=== PATIENT | male | born 1970 | race Caucasian/White ===

== ENCOUNTER 2018-02-20 13:44 | Inpatient (IN) ==
[~2018-02-20 13:44] MED LIST: ATROPINE 1 MG/10 ML SYRINGE ONE; EPINEPHrine 1 MG/ML VIAL ONE; SODIUM BICARBONATE 50 MEQ/50 ML SYRINGE IV ONE
[2018-02-20] MEDS ORDERED: NALOXONE 0.4 MG/ML VIAL ONE (13:47)
[2018-02-20] MEDS ORDERED: NALOXONE 0.4 MG/ML VIAL IV STA (13:47)
[2018-02-20] MEDS ORDERED: FLUMAZENIL 0.5 MG/5 ML VIAL IV ONE (13:47)
[2018-02-20] MEDS ORDERED: NALOXONE 0.4 MG/ML VIAL IV ONE (13:53)
[2018-02-20] MEDS ORDERED: SODIUM CHLORIDE 0.9% 1,000 ML IV STA (13:53)
[2018-02-20] MEDS ORDERED: FLUMAZENIL 1 MG/10 ML VIAL IV ONE (13:54)
[2018-02-20] MEDS ORDERED: NOREPINEPHRINE 4 MG/4 ML VIAL IV ONE (14:31)
[2018-02-20] MEDS ORDERED: NOREPINEPHRINE 8 MG in SODIUM CHLORIDE 0.9% 242 ML IV PRN (14:32)
[2018-02-20 14:36] LABS: ABG HCO3 11.8 MMOL/L (20-26); ABG Oxygen Saturation 96.8 % (95-100); ABG PO2 164.5 MM HG (80-95); ABG TCO2 16.1 MMOL/L (23-27); Allen Test Positive; Pt O2 Delivery Device Ventilator
[2018-02-20 14:39] LABS: ABG Base Excess -30.6 MMOL/L (-2.5-2.5)
[2018-02-20 14:40] LABS: Alanine Aminotransferase 2020 U/L (16-61); Albumin 2.8 G/DL (3.4-5.0); Alkaline Phosphatase 105 U/L (45-117); Aspartate Amino Transferase 1598 U/L (0-37); Blood Urea Nitrogen 23 MG/DL (7-18); Calcium 8.8 MG/DL (8.5-10.1); Glucose 57 MG/DL (74-106); Osmolality,Calculated 280.4 MOS/KG (273-304); Sodium 140 MMOL/L (136-145); Total Protein 6.2 G/DL (6.4-8.3)
[2018-02-20 14:42] LABS: Potassium > 8.0 MMOL/L (3.5-5.1)
[2018-02-20] MEDS ORDERED: DEXTROSE 50% 25 GM/50 ML VIAL IV STA (14:43)
[2018-02-20] MEDS ORDERED: INSULIN REGULAR 100 UNIT/ML IV STA (14:43)
[2018-02-20] MEDS ORDERED: SODIUM BICARBONATE 50 MEQ/50 ML VIAL IV STA (14:43)
[2018-02-20 14:44] LABS: ABG PH 6.548 (7.35-7.45)
[2018-02-20] MEDS ORDERED: DEXTROSE 50% 25 GM/50 ML SYRINGE IV ONE ×2 (14:45→18:14)
[2018-02-20] MEDS ORDERED: SODIUM BICARBONATE 50 MEQ/50 ML SYRINGE IV ONE ×7 (14:46→20:25)
[2018-02-20] MEDS ORDERED: INSULIN REGULAR 100 UNIT/ML ONE (14:47)
[2018-02-20] MEDS ORDERED: ACETAMINOPHEN 325 MG TABLET PO PRN (14:58)
[2018-02-20] MEDS ORDERED: MORPHINE 4 MG/1 ML VIAL IV PRN (14:58)
[2018-02-20] MEDS ORDERED: ONDANSETRON 4 MG/2 ML VIAL IV PRN (14:58)
[2018-02-20] MEDS ORDERED: ALBUTEROL 2.5 MG/3 ML NEB RESP TX PRN (14:58)
[2018-02-20] MEDS ORDERED: ENOXAPARIN 40 MG/0.4 ML SYRINGE SUBCUT SCH (15:00)
[2018-02-20] MEDS ORDERED: PROPOFOL 1,000 MG/100 ML BOTTLE IV SCH (15:00)
[2018-02-20] MEDS ORDERED: SODIUM CHLORIDE 0.9% 1,000 ML IV SCH (15:00)
[2018-02-20 15:12] LABS: Barbiturates Screen,Urine Negative (Negative); Benzodiazepines Screen,Urine Positive (Negative); Cannabinoid Screen,Urine Negative (Negative); Opiate Screen,Urine Negative (Negative); Phencyclidine Screen,Urine Negative (Negative)
[2018-02-20 15:14] LABS: Basophils # 0.3 10*3/uL (0.0-0.2); Basophils % 1.2 % (0.0-0.8); Eosinophils # 0.2 10*3/uL (0.0-0.87); Eosinophils % 0.7 % (0.00-10.9); Immature Granulocytes Absolute 1.77 #; Lymphocytes # 5.6 10*3/uL (1.4-4.0); Lymphocytes % 25.4 % (21.2-54.2); Mean Corpuscular HGB Conc 28.6 GM/DL (32-36); Mean Corpuscular Hemoglobin 31 PG (27-34); Mean Corpuscular Volume 108.6 FL (87-102); Mean Platelet Volume 9.6 FL (9.6-12.0); Monocytes # 1.6 10*3/uL (0.11-0.8); Monocytes % 7.2 % (1.7-12.7); NRBC # 0.12 10*3/uL; Neutrophils # 12.7 10*3/uL (1.4-7.4); Neutrophils % 57.5 % (38.7-73.9); Platelet Count 199 T/CUMM (130-400); Red Blood Count 4.51 MC/CUMM (3.8-5.5); Red Cell Distribution Width 12.1 % (9.3-17.3); White Blood Count 22.2 T/CUMM (4-12)
[2018-02-20 15:56] LABS: Lactic Acid 18.9 MMOL/L (0.4-2.0)
[2018-02-20] MEDS ORDERED: MIDAZOLAM 100 MG in SODIUM CHLORIDE 0.9% 80 ML IV PRN (16:01)
[2018-02-20] MEDS ORDERED: PHENYLEPHRINE DRIP 40 MG/250 ML PREMIX IV PRN (16:03)
[2018-02-20] MEDS ORDERED: POTASSIUM CHLORIDE RIDER 10 MEQ in PREMIX 1 EACH IV PRN (16:04)
[2018-02-20] MEDS ORDERED: POTASSIUM CHLORIDE RIDER 20 MEQ in PREMIX 1 EACH IV PRN (16:04)
[2018-02-20] MEDS ORDERED: MAGNESIUM SULF RIDER 2 GM in PREMIX 1 EACH IV PRN (16:05)
[2018-02-20] MEDS ORDERED: MAGNESIUM SULF RIDER 4 GM in PREMIX 1 EACH IV PRN (16:05)
[2018-02-20] MEDS ORDERED: GLUCAGON 1 MG VIAL IM PRN (16:08)
[2018-02-20] MEDS ORDERED: DEXTROSE 50% 25 GM/50 ML VIAL IV PRN (16:08)
[2018-02-20 16:10] LABS: Calcium 7.9 MG/DL (8.5-10.1); Osmolality,Calculated 286.1 MOS/KG (273-304); Potassium 5.2 MMOL/L (3.5-5.1)
[2018-02-20] MEDS ORDERED: MIDAZOLAM 2 MG/2 ML VIAL IV PRN (16:11)
[2018-02-20] MEDS ORDERED: fentaNYL 100 MCG/2 ML VIAL IV PRN (16:12)
[2018-02-20 16:20] LABS: ABG Base Excess -29.4 MMOL/L (-2.5-2.5); ABG HCO3 6.2 MMOL/L (20-26); ABG Oxygen Saturation 97.6 % (95-100); ABG TCO2 11.2 MMOL/L (23-27); Allen Test Positive; Pt O2 Delivery Device Ventilator
[2018-02-20 16:22] LABS: Band Neutrophils 2 % (0-10); Eosinophils 1 % (0-10); Lymphocytes 28 % (20-55); Nucleated Red Blood Cells 2 (0-5); Segmented Neutrophils 60 % (50-85); Total Cells Counted 100
[2018-02-20 16:23] LABS: Atypical Lymphocytes Few; Platelet Estimate Normal
[2018-02-20 16:23] LABS: ABG PCO2 77.3 MM HG (35-48); ABG PH 6.745 (7.35-7.45)
[2018-02-20] MEDS ORDERED: fentaNYL 100 MCG/2 ML VIAL IV ONE (16:30)
[2018-02-20 16:36] LABS: Hepatitis A Ab IgM Quant 0.14 Index; Hepatitis A Ab IgM Result Negative (Negative); Hepatitis B Core IgM Quant < 0.05 Index; Hepatitis B Core IgM Result Negative (Negative); Hepatitis B Surface Ag Quant < 0.10 Index; Hepatitis B Surface Ag Result Negative (Negative); Hepatitis C Virus Ab Quant < 0.02 Index; Hepatitis C Virus Ab Result Negative (Negative)
[2018-02-20 16:46] LABS: INR 1.6; PT Patient Result 17.3 SECS
[2018-02-20 16:51] LABS: Partial Thromboplastin Time 65.6 SECS (0-40)
[2018-02-20 16:57] LABS: Troponin I 0.661 NG/ML (0.00-0.045)
[2018-02-20] MEDS: CISATRACURIUM 200 MG in SODIUM CHLORIDE 0.9% 180 ML IV SCH (17:21)
[2018-02-20] MEDS: SODIUM BICARB INJ 100 MEQ in DEXTROSE 5% 1,000 ML IV SCH ×2 (17:22→23:14)
[2018-02-20] MEDS: fentaNYL INJ 1,250 MCG in SODIUM CHLORIDE 0.9% 225 ML IV PRN (17:24)
[2018-02-20] MEDS: PANTOPRAZOLE 40 MG VIAL IV SCH (18:06)
[2018-02-20 18:10] LABS: ABG Base Excess -22.5 MMOL/L (-2.5-2.5); ABG HCO3 9.3 MMOL/L (20-26); ABG Oxygen Saturation 98.2 % (95-100); ABG PCO2 59.5 MM HG (35-48); ABG TCO2 12.1 MMOL/L (23-27)
[2018-02-20 18:11] LABS: ABG PH 6.932 (7.35-7.45)
[2018-02-20] MEDS: DOPamine 800 MG/250 ML PREMIX IV PRN ×2 (18:18→21:53)
[2018-02-20] MEDS: NOREPINEPHRINE 16 MG in SODIUM CHLORIDE 0.9% 234 ML IV PRN (18:42)
[2018-02-20] MEDS: PHENYLEPHRINE INJ 160 MG in SODIUM CHLORIDE 0.9% 234 ML IV PRN (18:43)
[2018-02-20 19:21] VITALS: BP 90/32
[2018-02-20] MEDS: ALBUTEROL/IPRATROPIUM 3 ML NEB RESP TX SCH (19:36)
[2018-02-20 20:04] LABS: ABG Base Excess -17.2 MMOL/L (-2.5-2.5); ABG HCO3 12.2 MMOL/L (20-26); ABG Oxygen Saturation 96.8 % (95-100); ABG PCO2 47.8 MM HG (35-48); ABG TCO2 12.7 MMOL/L (23-27)
[2018-02-20 20:06] LABS: ABG PH 7.076 (7.35-7.45)
[2018-02-20] MEDS: INSULIN REGULAR 100 UNIT/ML IV SCH (20:10)
[2018-02-20] MEDS: PIPERACILLIN/TAZOBACTAM 3,375 MG in SODIUM CHLORIDE 0.9% 100 ML IV SCH (20:10)
[2018-02-20] MEDS ORDERED: SODIUM CHLORIDE 0.9% 1,000 ML IV ONE (20:25)
[2018-02-20] MEDS: VASOPRESSIN 100 UNITS in SODIUM CHLORIDE 0.9% 95 ML IV SCH (21:45)
[2018-02-20] MEDS: MINERAL OIL/PETROLATUM OPH OINT 3.5 GM TUBE BOTH EYES SCH (21:53)
[2018-02-20 22:45] LABS: Basophils # 0.2 10*3/uL (0.0-0.2); Basophils % 1.5 % (0.0-0.8); Eosinophils % 0.2 % (0.00-10.9); Hematocrit 43.9 VOL% (42.0-52.0); Hemoglobin 13.9 GM/DL (14.0-18.0); Immature Granulocytes % 6.6 %; Immature Granulocytes Absolute 0.67 #; Lymphocytes # 1.3 10*3/uL (1.4-4.0); Lymphocytes % 12.6 % (21.2-54.2); Mean Corpuscular HGB Conc 31.7 GM/DL (32-36); Mean Corpuscular Hemoglobin 31 PG (27-34); Mean Corpuscular Volume 97.8 FL (87-102); Mean Platelet Volume 9.3 FL (9.6-12.0); Monocytes # 0.2 10*3/uL (0.11-0.8); Monocytes % 2.1 % (1.7-12.7); Neutrophils # 7.8 10*3/uL (1.4-7.4); Platelet Count 141 T/CUMM (130-400); Red Blood Count 4.49 MC/CUMM (3.8-5.5); Red Cell Distribution Width 12.4 % (9.3-17.3)
[2018-02-20 22:47] LABS: INR 3.5
[2018-02-20 22:48] LABS: White Blood Count 10.2 T/CUMM (4-12)
[2018-02-20 22:52] LABS: Eosinophils 1 % (0-10); Lactic Acid 14.7 MMOL/L (0.4-2.0); Lymphocytes 22 % (20-55); Nucleated Red Blood Cells 1 (0-5); Reactive Lymphocytes 1+; Segmented Neutrophils 68 % (50-85); Total Cells Counted 100
[2018-02-20 22:53] LABS: Hypochromasia Slight; Macrocytosis 1+; Platelet Estimate Adequate
[2018-02-20 23:00] LABS: PT Patient Result 38.1 SECS; Partial Thromboplastin Time 57.2 SECS (0-40)
[2018-02-21 00:04] LABS: Blood Urea Nitrogen 27 MG/DL (7-18); CKMB % 4.1 %; Glucose 147 MG/DL (74-106); Potassium 3.9 MMOL/L (3.5-5.1); Sodium 143 MMOL/L (136-145)
[2018-02-21 00:06] LABS: Calcium < 5.0 MG/DL (8.5-10.1)
[2018-02-21] MEDS: DOPamine 800 MG/250 ML PREMIX IV PRN ×8 (00:15→21:15)
[2018-02-21] MEDS ORDERED: CALCIUM GLUCONATE 2,000 MG in SODIUM CHLORIDE 0.9% 100 ML IV ONE ×2 (00:45→11:04)
[2018-02-21] MEDS ORDERED: SODIUM CHLORIDE 0.9% 1,000 ML IV ONE ×2 (00:45→00:48)
[2018-02-21] MEDS ORDERED: DOBUTamine 500 MG/250 ML PREMIX IV PRN (00:46)
[2018-02-21] MEDS: ALBUTEROL/IPRATROPIUM 3 ML NEB RESP TX SCH ×4 (00:50→19:41)
[2018-02-21] MEDS ORDERED: CALCIUM GLUCONATE 1,000 MG/10 ML VIAL IV ONE (00:55)
[2018-02-21] MEDS: NOREPINEPHRINE 16 MG in SODIUM CHLORIDE 0.9% 234 ML IV PRN ×4 (00:57→22:05)
[2018-02-21 01:02] LABS: ABG Base Excess -16.5 MMOL/L (-2.5-2.5); ABG HCO3 12.3 MMOL/L (20-26); ABG Oxygen Saturation 94.3 % (95-100); ABG PCO2 55.9 MM HG (35-48); ABG PO2 90.9 MM HG (80-95); ABG TCO2 14.3 MMOL/L (23-27)
[2018-02-21] MEDS ORDERED: SODIUM BICARBONATE 50 MEQ/50 ML SYRINGE IV ONE ×2 (01:03→01:05)
[2018-02-21 01:05] LABS: ABG PH 7.047 (7.35-7.45)
[2018-02-21] MEDS: INSULIN REGULAR 100 UNIT/ML IV SCH ×6 (01:16→19:58)
[2018-02-21] MEDS: PHENYLEPHRINE INJ 160 MG in SODIUM CHLORIDE 0.9% 234 ML IV PRN ×3 (01:42→15:31)
[2018-02-21] MEDS: SODIUM BICARB INJ 100 MEQ in DEXTROSE 5% 1,000 ML IV SCH ×4 (02:32→11:08)
[2018-02-21 04:27] LABS: ABG Base Excess -13.9 MMOL/L (-2.5-2.5); ABG HCO3 16.5 MMOL/L (20-26); ABG Oxygen Saturation 96.6 % (95-100); ABG PCO2 58.1 MM HG (35-48); ABG PO2 106.8 MM HG (80-95); ABG TCO2 18.3 MMOL/L (23-27)
[2018-02-21 04:30] LABS: Basophils % 1.1 % (0.0-0.8); Eosinophils % 0.3 % (0.00-10.9); Hematocrit 40.7 VOL% (42.0-52.0); Hemoglobin 12.8 GM/DL (14.0-18.0); Immature Granulocytes % 5.6 %; Lymphocytes # 1.1 10*3/uL (1.4-4.0); Lymphocytes % 29.8 % (21.2-54.2); Mean Corpuscular HGB Conc 31.4 GM/DL (32-36); Mean Corpuscular Hemoglobin 31 PG (27-34); Mean Corpuscular Volume 97.1 FL (87-102); Mean Platelet Volume 9.8 FL (9.6-12.0); Monocytes # 0.1 10*3/uL (0.11-0.8); Monocytes % 1.7 % (1.7-12.7); NRBC # 0.15 10*3/uL; Neutrophils # 2.2 10*3/uL (1.4-7.4); Neutrophils % 61.5 % (38.7-73.9); Platelet Count 148 T/CUMM (130-400); Red Blood Count 4.19 MC/CUMM (3.8-5.5); Red Cell Distribution Width 12.7 % (9.3-17.3); White Blood Count 3.6 T/CUMM (4-12)
[2018-02-21 04:30] LABS: ABG PH 7.072 (7.35-7.45)
[2018-02-21 04:47] LABS: INR 4.5
[2018-02-21 04:48] LABS: PT Patient Result 48.2 SECS; Partial Thromboplastin Time 54.6 SECS (0-40)
[2018-02-21 05:11] LABS: Albumin 1.9 G/DL (3.4-5.0); Potassium 3.6 MMOL/L (3.5-5.1); Total Protein 3.9 G/DL (6.4-8.3)
[2018-02-21 05:19] LABS: Lactic Acid 14.6 MMOL/L (0.4-2.0)
[2018-02-21] MEDS: PIPERACILLIN/TAZOBACTAM 3,375 MG in SODIUM CHLORIDE 0.9% 100 ML IV SCH ×3 (05:20→19:57)
[2018-02-21 05:22] LABS: Calcium 5.3 MG/DL (8.5-10.1)
[2018-02-21 05:26] LABS: CKMB % 4.4 %
[2018-02-21] MEDS ORDERED: METOPROLOL TARTRATE 5 MG/5 ML VIAL IV ONE (06:22)
[2018-02-21] MEDS ORDERED: ENOXAPARIN 30 MG/0.3 ML SYRINGE SUBCUT SCH (07:30)
[2018-02-21 07:51] LABS: Band Neutrophils 6 % (0-10); Eosinophils 1 % (0-10); Hypochromasia 1+; Lymphocytes 43 % (20-55); Nucleated Red Blood Cells 2 (0-5); Platelet Estimate Adequate; Segmented Neutrophils 49 % (50-85); Total Cells Counted 100
[2018-02-21 07:52] LABS: Macrocytosis Slight
[2018-02-21] MEDS: HYDROCORTISONE 100 MG VIAL IV SCH ×3 (07:52→18:42)
[2018-02-21] MEDS ORDERED: POTASSIUM CHLORIDE RIDER IV PRN (09:15)
[2018-02-21] MEDS ORDERED: [UNRECOGNIZED DRUG - OTHER] IV PRN (09:15)
[2018-02-21 09:52] LABS: Basophils % 0.3 % (0.0-0.8); Eosinophils % 0.6 % (0.00-10.9); Hematocrit 38.7 VOL% (42.0-52.0); Hemoglobin 12.4 GM/DL (14.0-18.0); Immature Granulocytes % 1.9 %; Immature Granulocytes Absolute 0.06 #; Lymphocytes # 1.4 10*3/uL (1.4-4.0); Lymphocytes % 44.2 % (21.2-54.2); Mean Corpuscular Hemoglobin 32 PG (27-34); Mean Corpuscular Volume 98.2 FL (87-102); Monocytes # 0.1 10*3/uL (0.11-0.8); Monocytes % 1.6 % (1.7-12.7); NRBC # 0.15 10*3/uL; Neutrophils # 1.6 10*3/uL (1.4-7.4); Neutrophils % 51.4 % (38.7-73.9); Platelet Count 144 T/CUMM (130-400); Red Blood Count 3.94 MC/CUMM (3.8-5.5); Red Cell Distribution Width 12.8 % (9.3-17.3); White Blood Count 3.1 T/CUMM (4-12)
[2018-02-21] MEDS ORDERED: POTASSIUM CHLORIDE RIDER 100 ML IV PRN (10:00)
[2018-02-21] MEDS ORDERED: MAGNESIUM SULF RIDER 1 GM in PREMIX 1 EACH IV PRN (10:00)
[2018-02-21 10:19] LABS: Lactic Acid 15.2 MMOL/L (0.4-2.0)
[2018-02-21 10:26] LABS: INR 5.2; PT Patient Result 56.1 SECS; Partial Thromboplastin Time 57.8 SECS (0-40)
[2018-02-21 10:42] LABS: Band Neutrophils 17 % (0-10); Giant Platelets Few; Lymphocytes 64 % (20-55); Metamyelocytes 3 %; Platelet Estimate Adequate; Segmented Neutrophils 14 % (50-85); Total Cells Counted 100
[2018-02-21 10:43] LABS: Anisocytosis Slight
[2018-02-21 10:48] LABS: Blood Urea Nitrogen 31 MG/DL (7-18); Glucose 234 MG/DL (74-106); Osmolality,Calculated 295.3 MOS/KG (273-304); Potassium 3.1 MMOL/L (3.5-5.1); Sodium 141 MMOL/L (136-145)
[2018-02-21 10:54] LABS: Calcium < 5.0 MG/DL (8.5-10.1)
[2018-02-21] MEDS: POTASSIUM CHLORIDE RIDER 20 MEQ in PREMIX 1 EACH IV PRN ×2 (11:53→17:22)
[2018-02-21] MEDS: PANTOPRAZOLE 40 MG VIAL IV SCH (14:45)
[2018-02-21] MEDS: SODIUM BICARB INJ 100 MEQ in STERILE WATER INJ 1,000 ML IV SCH (14:45)
[2018-02-21 15:32] LABS: Basophils % 0.5 % (0.0-0.8); Eosinophils % 0.5 % (0.00-10.9); Hematocrit 39.9 VOL% (42.0-52.0); Hemoglobin 12.5 GM/DL (14.0-18.0); Immature Granulocytes % 1.1 %; Immature Granulocytes Absolute 0.09 #; Lymphocytes # 1.9 10*3/uL (1.4-4.0); Mean Corpuscular HGB Conc 31.3 GM/DL (32-36); Mean Corpuscular Hemoglobin 31 PG (27-34); Mean Corpuscular Volume 99.3 FL (87-102); Mean Platelet Volume 10.1 FL (9.6-12.0); Monocytes # 0.1 10*3/uL (0.11-0.8); NRBC # 0.17 10*3/uL; Neutrophils # 6.2 10*3/uL (1.4-7.4); Neutrophils % 73.9 % (38.7-73.9); Platelet Count 153 T/CUMM (130-400); Red Blood Count 4.02 MC/CUMM (3.8-5.5); Red Cell Distribution Width 13.2 % (9.3-17.3); White Blood Count 8.3 T/CUMM (4-12)
[2018-02-21] MEDS: CISATRACURIUM 200 MG in SODIUM CHLORIDE 0.9% 180 ML IV SCH (15:37)
[2018-02-21 15:59] LABS: PT Patient Result 56.9 SECS
[2018-02-21 16:00] LABS: Partial Thromboplastin Time 60.4 SECS (0-40)
[2018-02-21 16:01] LABS: INR 5.3
[2018-02-21 16:18] LABS: Blood Urea Nitrogen 35 MG/DL (7-18); Glucose 236 MG/DL (74-106); Lactic Acid 14.8 MMOL/L (0.4-2.0); Osmolality,Calculated 294.4 MOS/KG (273-304); Potassium 3.3 MMOL/L (3.5-5.1); Sodium 140 MMOL/L (136-145)
[2018-02-21 16:25] LABS: Band Neutrophils 7 % (0-10); Lymphocytes 27 % (20-55); Segmented Neutrophils 65 % (50-85); Total Cells Counted 100
[2018-02-21 16:26] LABS: Platelet Estimate Normal
[2018-02-21 16:59] LABS: Calcium 5.6 MG/DL (8.5-10.1)
[2018-02-21 17:14] LABS: CKMB % 3.9 %
[2018-02-21] MEDS: VASOPRESSIN 100 UNITS in SODIUM CHLORIDE 0.9% 95 ML IV SCH (21:32)
[2018-02-21] MEDS: MINERAL OIL/PETROLATUM OPH OINT 3.5 GM TUBE BOTH EYES SCH (21:32)
[2018-02-21] MEDS ORDERED: ACETAMINOPHEN 325 MG/10.15 ML UDCUP PO PRN (22:10)
[2018-02-21 22:25] LABS: Basophils # 0.1 10*3/uL (0.0-0.2); Basophils % 0.5 % (0.0-0.8); Eosinophils # 0.1 10*3/uL (0.0-0.87); Eosinophils % 0.4 % (0.00-10.9); Hematocrit 40.7 VOL% (42.0-52.0); Hemoglobin 12.4 GM/DL (14.0-18.0); Immature Granulocytes % 1.4 %; Immature Granulocytes Absolute 0.19 #; Lymphocytes # 2.2 10*3/uL (1.4-4.0); Lymphocytes % 16.2 % (21.2-54.2); Mean Corpuscular HGB Conc 30.5 GM/DL (32-36); Mean Corpuscular Hemoglobin 31 PG (27-34); Mean Corpuscular Volume 100.7 FL (87-102); Mean Platelet Volume 10.6 FL (9.6-12.0); Monocytes # 0.2 10*3/uL (0.11-0.8); Monocytes % 1.2 % (1.7-12.7); NRBC # 0.31 10*3/uL; Neutrophils # 10.8 10*3/uL (1.4-7.4); Neutrophils % 80.3 % (38.7-73.9); Platelet Count 165 T/CUMM (130-400); Red Blood Count 4.04 MC/CUMM (3.8-5.5); Red Cell Distribution Width 13.4 % (9.3-17.3); White Blood Count 13.5 T/CUMM (4-12)
[2018-02-21 22:27] LABS: ABG Base Excess -23.9 MMOL/L (-2.5-2.5); ABG HCO3 8.2 MMOL/L (20-26); ABG Oxygen Saturation 94.6 % (95-100); ABG PCO2 46.5 MM HG (35-48); ABG TCO2 9.4 MMOL/L (23-27)
[2018-02-21 22:34] LABS: ABG PH 6.921 (7.35-7.45)
[2018-02-21 22:51] LABS: Band Neutrophils 4 % (0-10); Eosinophils 1 % (0-10); Lymphocytes 27 % (20-55); Metamyelocytes 4 %; Myelocytes 3 %; Nucleated Red Blood Cells 1 (0-5); Platelet Estimate Normal; Segmented Neutrophils 60 % (50-85)
[2018-02-21 22:52] LABS: Macrocytosis Slight; Polychromasia Slight; Total Cells Counted 100
[2018-02-21] MEDS: fentaNYL INJ 1,250 MCG in SODIUM CHLORIDE 0.9% 225 ML IV PRN (22:53)
[2018-02-21 23:49] LABS: Lactic Acid 16.2 MMOL/L (0.4-2.0)
[2018-02-22] MEDS: ALBUTEROL/IPRATROPIUM 3 ML NEB RESP TX SCH
[2018-02-22 00:05] LABS: Blood Urea Nitrogen 35 MG/DL (7-18); Glucose 121 MG/DL (74-106); Osmolality,Calculated 287.4 MOS/KG (273-304); Potassium 4.4 MMOL/L (3.5-5.1); Sodium 140 MMOL/L (136-145)
[2018-02-22] MEDS: DOPamine 800 MG/250 ML PREMIX IV PRN ×2 (00:31→03:44)
[2018-02-22] MEDS: PHENYLEPHRINE INJ 160 MG in SODIUM CHLORIDE 0.9% 234 ML IV PRN (00:32)
[2018-02-22 00:39] LABS: CKMB % 5.1 %
[2018-02-22 00:41] LABS: Calcium 5.2 MG/DL (8.5-10.1)
[2018-02-22] MEDS: INSULIN REGULAR 100 UNIT/ML IV SCH (00:42)
[2018-02-22 01:06] LABS: Partial Thromboplastin Time 86.8 SECS (0-40)
[2018-02-22 01:10] LABS: INR > 20.0; PT Patient Result > 200.0 SECS
[2018-02-22] MEDS: SODIUM BICARB INJ 100 MEQ in STERILE WATER INJ 1,000 ML IV SCH (01:29)
[2018-02-22] MEDS: HYDROCORTISONE 100 MG VIAL IV SCH (01:29)
[2018-02-22 03:32] LABS: ABG Base Excess -27.6 MMOL/L (-2.5-2.5); ABG HCO3 6.2 MMOL/L (20-26); ABG PCO2 43.2 MM HG (35-48); ABG PO2 77.4 MM HG (80-95); ABG TCO2 7.4 MMOL/L (23-27)
[2018-02-22 03:33] LABS: ABG PH 6.827 (7.35-7.45); Basophils # 0.1 10*3/uL (0.0-0.2); Basophils % 0.4 % (0.0-0.8); Eosinophils # 0.1 10*3/uL (0.0-0.87); Eosinophils % 0.7 % (0.00-10.9); Hematocrit 39.6 VOL% (42.0-52.0); Hemoglobin 12.1 GM/DL (14.0-18.0); Immature Granulocytes % 2.5 %; Immature Granulocytes Absolute 0.33 #; Lymphocytes # 2.5 10*3/uL (1.4-4.0); Mean Corpuscular HGB Conc 30.6 GM/DL (32-36); Mean Corpuscular Hemoglobin 31 PG (27-34); Mean Corpuscular Volume 100.5 FL (87-102); Mean Platelet Volume 10.4 FL (9.6-12.0); Monocytes # 0.2 10*3/uL (0.11-0.8); Monocytes % 1.3 % (1.7-12.7); Neutrophils # 10.2 10*3/uL (1.4-7.4); Neutrophils % 76.1 % (38.7-73.9); Platelet Count 132 T/CUMM (130-400); Red Blood Count 3.94 MC/CUMM (3.8-5.5); Red Cell Distribution Width 13.8 % (9.3-17.3); White Blood Count 13.4 T/CUMM (4-12)
[2018-02-22] MEDS: PIPERACILLIN/TAZOBACTAM 3,375 MG in SODIUM CHLORIDE 0.9% 100 ML IV SCH (03:43)
== END 2018-02-22 03:53 | disposition expired | DRG 917 ==
LOC: EDUNIT# → EDBD → N.ED 13:44 → N.EDINP 14:58 → SUATTDRO 14:58 → N.ICU 15:50
PROVIDERS: ADMIT Internal Medicine; ATTEND Internal Medicine Cardiovascular Disease